=== PATIENT | male | born 2000 | race Caucasian/White ===

== ENCOUNTER 2022-06-27 21:06 | Emergency (ER) | payer OTHER, BC, SELFPAY ==
[2022-06-27 21:06] VITALS: BP 134/74; PULSE 77; RESP 18; TEMP 36.4; O2SAT 97; BMI 17.2
--- NOTE | 2022-06-27 21:24 | EKG12_ITS ---
Test Reason : DIZZINESS Blood Pressure : / mmHG Vent. Rate : 100 BPM Atrial Rate : 100 BPM P-R Int : 148 ms QRS Dur : 084 ms QT Int : 328 ms P-R-T Axes : 065 083 082 degrees QTc Int : 423 ms Normal sinus rhythm Nonspecific T wave abnormality Abnormal ECG Confirmed by JOSÉ MIGUEL CAMACHO ([id number]), city editor TANJA NORWOOD ([id number]) on 07/02/2022 7:57:22 AM Referred By: Confirmed By:JOSÉ MIGUEL CAMACHO
--- NOTE | 2022-06-27 21:25 | EDS_ITS ---
HPI History of Present Illness Chief Complaint: Dizziness Informant: patient Narrative Narrative: 2-week history lightheaded symptoms. Symptoms daily. No syncopal episodes. No chest pains. Reports dyspnea. Denies cough or asthma. He vapes daily. Occasional marijuana use last time a week ago. Did not worsen symptoms. Urine frequency. No bloody stools. No recent travel. History of similar when he felt carsick. Currently nauseated. Prior similar symptoms: Yes PFSH PFSH Medical History no medical history Allergy/AdvReac Type Severity Reaction Status Date / Time No Known Allergies Allergy Verified 06/27/22 21:08 Social History Smoking Status: Light Smoker (<10/day) ROS ROS ED Constitutional Constitutional ED: Denies chills, fever(s) or sweats Eyes Eyes: Denies change in vision ENT ENT ED: Denies dysphagia or sore throat Cardiovascular Cardiovascular: Reports other Details: Lightheaded ; Denies chest pain, leg edema, palpitations or racing heartbeat Respiratory/Chest Respiratory/Chest: Reports dyspnea; Denies cough or dyspnea on exertion Gastrointestinal Gastrointestinal: Reports nausea; Denies abdominal pain, diarrhea or vomiting Genitourinary Genitourinary ED: Denies dysuria, hematuria or urinary frequency Musculoskeletal Musculoskeletal: Denies back pain, extremity pain or neck pain Integumentary Denies rash or wounds Neurologic Neurologic: Denies headache(s), paresthesias or weakness EXAM Physical Exam Const Vital Signs: 06/27/22 21:06 06/27/22 21:44 Temperature 97.6 F L Temperature Source Temporal Pulse Rate 77 Respiratory Rate 18 Respiratory Effort Normal Non-Labored Respiratory Pattern Normal Blood Pressure 134/74 H Blood Pressure Mean 94 Pulse Ox 97 Oxygen Delivery Method Room Air Positive well nourished and well developed General Appearance ED: well developed and NAD HEENT Reports moist mucous membranes normocephalic and atraumatic Eyes PERRL, EOMs intact bilaterally and conjunctivae normal General Eye ED: Yes normal appearance of both eyes Neck no lymphadenopathy and supple General: Negative for tenderness Chest Wall Chest: Negative for tenderness Resp normal respiratory effort and normal air movement Effort and Inspection: symmetric chest movement; Negative for respiratory distress Cardio regular rate, regular rhythm and no murmurs Peripheral Pulses: pulses 2+ throughout GI normal to inspection, nondistended, normoactive bowel sounds and non-tender Palpation: Negative for guarding or rebound tenderness present Back/Spine no CVA tenderness and no thoracic nor lumbar tenderness Extremity normal to inspection General Extremety ED: Negative for edema or tenderness General Extremity: Negative for edema Neuro oriented x3, CN's II-XII intact bilaterally and no sensory deficits noted Sensorium / Orientation: awake and alert Skin no rashes or lesions noted and no wounds MDM MDM MDM Narrative Medical decision making narrative: Interventions / MDM: Differential diagnosis: Cardiac dysrhythmia, electrolyte abnormalities, marijuana dependence Diagnosis considered but do not suspect: PE, however PERC criteria negative. My EKG interpretation: Sinus rhythm rate of 100, no ST or T wave changes QTc 423. Imaging independently reviewed and interpreted by myself: N/A External documents reviewed: N/A Test considered but not ordered:N/A ED course: Patient near syncope. Given IV fluids EKG sinus rhythm Labs significant only for potassium 3.3. Urine is negative. Orally replaced he is ambulating with improving symptoms. He was given Zofran. Patient does have a PCP states monitoring some follow-up with them. Return precautions. All questions were answered. Re-evaluation: stable and improved Disposition discussed with patient/family/significant other: Patient Case discussed with consulting clinician: N/A Lab Data Labs: Laboratory Results - last 24 hr 06/27/22 06/27/22 06/27/22 20:45 21:50 21:50 WBC 12.4 H RBC 4.20 L Hgb 13.4 Hct 39.4 L MCV 93.8 MCH 31.9 MCHC 34.0 RDW Std Deviation 39.2 RDW Coeff of Joelle 11.6 Plt Count 324 MPV 10.1 Immature Gran % (Auto) 0.300 Neut % (Auto) 78.8 H Lymph % (Auto) 14.3 L [place] % (Auto) 4.0 Eos % (Auto) 1.5 Baso % (Auto) 1.1 H Absolute Neuts (auto) 9.7 H Absolute Lymphs (auto) 1.77 Nucleated RBC % 0 Sodium 137 Potassium 3.3 L Chloride 107 Carbon Dioxide 23.0 Anion Gap 7 BUN 8 Creatinine 0.84 Estim Creat Clear Calc 107.94 Est GFR (MDRD) Af Amer 150 Est GFR (MDRD) Non-Af 124 BUN/Creatinine Ratio 9.6 L Glucose 113 H Calcium 9.2 Urine Color Yellow Urine Clarity Clear Urine pH 7.0 Ur Specific Wheeler 1.010 Urine Protein Negative Urine Glucose (UA) Normal Urine Ketones Negative Urine Occult Blood Negative Urine Nitrite Negative Urine Bilirubin Negative Urine Urobilinogen Normal Ur Leukocyte Esterase Negative Urine RBC 0 SEEN Urine WBC 0 SEEN Ur Squamous Epith Cells 0 SEEN Urine Bacteria 0 SEEN Urine Mucus 0 SEEN Discharge Plan Triage Chief Complaint: Dizziness ED Provider: Curtis Gonzalez Dx/Rx/DC Orders Clinical Impression: Near syncope, Acute hypokalemia Instructions: ED Hypokalemia, ED Near-Fainting, Uncertain Cause Primary Care Provider: Care Physician,Starr Primary Referrals: NOT,DEFINED [Non-Staff] - Activity Restrictions/Additional Instructions: EKG normal labs potassium 3.3. Continue oral fluids for hydration. Follow-up with your doctor. Disposition Disposition: Home, Self Care
[2022-06-27] MEDS: 0.9% Normal Saline 1,000 ML 1000 ML IV (21:57)
[2022-06-27] MEDS: Ondansetron 4 MG/2 ML Vial IV (21:57)
[2022-06-27 22:06] LABS: Bacteria 0 SEEN /hpf (None Seen); Mucous, Urine 0 SEEN /hpf (<or=2+); Red Blood Cells-Urine 0 SEEN /hpf (0-5); Squamous Epithelial Cells - UA 0 SEEN /hpf (0-5); White Blood Cells 0 SEEN /hpf (0-5)
[2022-06-27 22:07] LABS: Absolute Lymphocyte Count 1.77 X10^3/uL (0.83-4.51); Absolute Neutrophil Count 9.7 X10^3/uL (2.0-7.7); Basophil# 0.13 X10^3/uL; Basophil% 1.1 % (0-1); Eosinophil# 0.19 X10^3/uL; Eosinophils% 1.5 % (0-5); Hematocrit 39.4 % (40-54); Hemoglobin 13.4 g/dL (13.0-16.5); Lymphocyte # 1.77 X10^3/ul (0.83-4.51); Lymphocyte % 14.3 % (19-41); Mean Corpuscular Hgb 31.9 pg (27.0-32.0); Mean Corpuscular Volume 93.8 fL (80-94); Mean Platelet Vol. 10.1 fl (6.2-12.0); NRBC Flagged by Analyzer 0 % (0-5); Neutrophil # 9.74 X10^3/uL (2.7-7.7); Neutrophil % 78.8 % (47-70); Platelet Count 324 K/mm3 (150-450); RBC Distribution Width CV 11.6 % (11.6-14.6); RBC Distribution Width SD 39.2 fl (35.1-43.9); White Blood Count 12.4 K/mm3 (4.4-11.0)
[2022-06-27 22:15] LABS: Color, Urine Yellow (Yellow); Glucose, Dipstick Normal (Normal); Ketone-Dipstick Negative (Negative); Leukocyte Esterase-Dipstick Negative /ul (Negative); Nitrite-Dipstick Negative (Negative); Occult Blood-Urine Negative /ul (Negative); Protein-Dipstick Negative (Negative); Urine Bilirubin Dipstick Negative (Negative); Urine Clarity Clear (Clear); Urine Urobilinogen Normal (Normal)
[2022-06-27 22:57] LABS: Anion Gap 7 (5-15); BUN 8 mg/dL (7-18); BUN/Creat Ratio 9.6 RATIO (10-20); Calcium,Total 9.2 mg/dL (8.5-10.1); Chloride 107 mmol/L (98-107); Creatinine, Serum 0.84 mg/dL (0.70-1.30); EST Glomerular Filtration Rate 124 mL/min (>60); Est Glom Filt Rate - Afr Amer 150 mL/min (>60); Estimated Creatinine Clearance 107.94 ml/min; Glucose 113 mg/dL (74-106); Potassium 3.3 mmol/L (3.5-5.1); Sodium Level 137 mmol/L (136-145)
[2022-06-27] MEDS: Potassium Chloride Oral Tablet 20 MEQ 40 MEQ PO (23:24)
== END 2022-06-27 23:40 | disposition home or self-care (01) ==
PROVIDERS: Emergency Provider Emergency Medicine; Visit Provider Emergency Medicine
DX: R55 Syncope and collapse (principal); E87.6 Hypokalemia; F17.200 Nicotine dependence, unspecified, uncomplicated
CPT/HCPCS: 80048; 81001; 85025; 93005; 96361; 96374; 99283; J7030; A4216; J2405